=== PATIENT | female | born 1965 | race Caucasian/White ===

== ENCOUNTER 2018-01-19 19:05 | Observation (INO) | payer MEDICARE ==
[~2018-01-19] VITALS: Ht 157.5 cm; Wt 73.5 kg
[2018-01-19 19:18] VITALS: BP 133/67; PULSE 112; RESP 21; TEMP 98.6; O2SAT 99
[2018-01-19 20:39] LABS: TROPONIN I LESS THAN 0.02 NG/ML (0.02-0.05)
[2018-01-19] MEDS ORDERED: ACETAMINOPHEN/HYDROcodone 325 MG/5 MG TAB PO ONE (21:00)
--- NOTE | 2018-01-19 21:00 | PD ---
HPI Chief Complaint: Chest Pain Time Seen by Provider: 20:47 Travel History International Travel<30 days: No Contact w/Intl Traveler<30days: No Traveled to known affect area: No History of Present Illness HPI 52-year-old female presents to the emergency department for evaluation of right forearm pain. Patient states that she crushed her right arm in June of last year. She states she has had pain since, but the pain worsened today. She denies any injury. Patient states the pain is worse with movement. Current pain is 10/10, aching, throbbing, sharp. Alleviating factors keeping the arm still. Moderate severity. Patient also states that she had an episode of chest tightness that was in the midsternal chest and lasted approximately an hour. She believes it was from anxiety due to the pain in her arm. She does report history of SD, CHF, she states her ejection fraction is 23%. She states she had a recent stress test in [place], but does not know the results of it. Patient denies any chest pain at this time. She had no radiation of the pain when she had it. She states it felt tight. PFSH Past Medical History Cardiovascular Problems: Yes Chest Pain: Yes Congestive Heart Failure: Yes COPD: Yes Cerebrovascular Accident: Yes Hypertension: Yes Myocardial Infarction: Yes Triglycerides - High: Yes ?: Not Past Surgical History Gynecologic Surgery: Yes (HYSTERECTOMY) Hysterectomy: Yes Social History Alcohol Use: No Tobacco Use: Yes Substance Use: No Allergies-Medications (Allergen,Severity, Reaction): Coded Allergies: latex (Verified Allergy, Severe, 01/19/18) varenicline (Verified Allergy, Severe, 01/19/18) Review of Systems Except as stated in HPI: all other systems reviewed are Neg Physical Exam Narrative GENERAL: Well-nourished, well-developed female patient, ambulatory. Afebrile. SKIN: Focused skin assessment warm/dry. Patient has chronic scars noted of the right forearm. HEAD: Normocephalic. Atraumatic. EYES: No scleral icterus. No injection or drainage. NECK: Supple, trachea midline. No JVD or lymphadenopathy. CARDIOVASCULAR: Regular rate and rhythm without murmurs, gallops, or rubs. Right radial pulse is 2+. RESPIRATORY: Breath sounds equal bilaterally. No accessory muscle use. Lung sounds are clear to auscultation. GASTROINTESTINAL: Abdomen soft, non-tender, nondistended. MUSCULOSKELETAL: No cyanosis, or edema. BACK: Nontender without obvious deformity. No CVA tenderness. Data Data Last Documented VS Vital Signs Date Time Temp Pulse Resp B/P (MAP) Pulse Ox O2 Delivery O2 Flow Rate FiO2 01/19/18 21:30 97 Room Air 01/19/18 20:06 100 16 01/19/18 19:18 98.6 133/67 (89) Orders Orders Electrocardiogram (01/19/18 ) Troponin I (01/19/18 19:38) Creatine Kinase (Cpk) (01/19/18 19:38) Forearm (2vws) (01/19/18 ) Acetamin-Hydrocod 325-5 Mg ([place] 5-325 (01/19/18 21:00) Basic Metabolic Panel (Bmp) (01/19/18 21:10) B-Type Natriuretic Peptide (01/19/18 21:10) Complete Blood Count With Diff (01/19/18 21:10) Magnesium (Mg) (01/19/18 21:10) Prothrombin Time / Inr (Pt) (01/19/18 21:10) Act Partial Throm Time (Ptt) (01/19/18 21:10) Chest, Single Ap (01/19/18 21:10) Ecg Monitoring (01/19/18 21:10) Bilateral Bp Monitoring (01/19/18 21:10) Iv Access Insert/Monitor (01/19/18 21:10) Oximetry (01/19/18 21:10) Oxygen Administration (01/19/18 21:10) Sodium Chloride 0.9% Flush (Ns Flush) (01/19/18 21:15) Chest, Pa & Lat (01/19/18 ) Labs Laboratory Tests Test 01/19/18 19:45 01/19/18 21:28 Total Creatine Kinase 60 U/L Troponin I LESS THAN 0.02 NG/ML Prothrombin Time 10.5 SEC Prothromb Time International Ratio 1.0 RATIO Activated Partial Thromboplast Time 31.9 SEC Blood Urea Nitrogen 12 MG/DL Creatinine 0.88 MG/DL Random Glucose 107 MG/DL Calcium Level 8.7 MG/DL Magnesium Level 2.1 MG/DL Sodium Level 140 MEQ/L Potassium Level 4.2 MEQ/L Chloride Level 105 MEQ/L Carbon Dioxide Level 27.4 MEQ/L Anion Gap 8 MEQ/L Estimat Glomerular Filtration Rate 67 ML/MIN MDM Medical Decision Making Medical Screen Exam Complete: Yes Emergency Medical Condition: Yes Medical Record Reviewed: Yes Interpretation(s) x-ray right forearm - CONCLUSION: 1. Lack of union of the radial fracture with intramedullary jennie. 2. No acute abnormality. chest x-ray - CONCLUSION: Lingular opacity. Differential diagnostic considerations include prominent epicardial fat pad, mass, rounded atelectasis, and infiltrate. PA and lateral views of the chest may be beneficial to further evaluate. Differential Diagnosis Chronic arm pain versus neuropathy versus fracture versus ACS versus anxiety versus chest wall pain versus pneumonia Narrative Course 52-year-old female presents to the emergency department for evaluation of arm pain. She also states she had an episode of midsternal chest pain that lasted approximately an hour earlier today. EKG done in triage shows sinus rhythm, heart rate 97, ST depression in lead II, III, V4, V5, V6. I do not have a previous to compare to. The patient is from [place]. CBC, BMP, BNP, CK, troponin, magnesium, PTT, PT/INR, chest x-ray, x-ray of the right forearm are ordered and pending. Patient states she took aspirin earlier today. CBC is pending. BMP shows no acute abnormality. BNP is pending. CK is 60. Magnesium is 2.1. Troponin is less than 0.02. Coags show no acute abnormality. Chest x-ray shows lingular opacity. Differential diagnostic considerations include prominent epicardial fat pad, mass, rounded atelectasis, and infiltrate. PA and lateral views of the chest may be beneficial to further evaluate. X-ray of the right forearm shows lack of union of the distal radial fracture with intramedullary jennie, no acute abnormality. Chest x-ray PA and lateral is ordered and pending due to radiologist's recommendation. CBC, BNP, CXR are pending. Dr. Mcdonnell will resume care and disposition of patient. Henna Medrano January 19, 2018 21:00
[2018-01-19] MEDS ORDERED: SODIUM CHLORIDE 0.9% FLUSH 10 ML FLUSH IVF PRN (21:15)
--- NOTE | 2018-01-19 21:15 | RADRPT ---
EXAM DATE/TIME: 01/19/2018 21:01 [facility] COMPARISON: No previous studies available for comparison. INDICATIONS : Right arm pain from elbow to wrist. MEDICAL HISTORY : None. SURGICAL HISTORY : ORIF right forearm. ENCOUNTER: Initial ACUITY: 3 days PAIN SCORE: 10/10 LOCATION: Right forearm. FINDINGS: 2 views of the right forearm show an intramedullary jennie through the radius. There is an old fracture involving the distal radial diaphysis with lack of union. The ulna is intact. No acute fracture obser estela. No soft tissue swelling. CONCLUSION: 1. Lack of union of the radial fracture with intramedullary jennie. 2. No acute abnormality. Quentin Gordon Jr., MD on January 19, 2018 at 21:12 Board Certified Radiologist. This report was verified electronically.
[2018-01-19 21:30] VITALS: O2SAT 97
[2018-01-19 22:09] LABS: PROTHROMBIN TIME - PATIENT 10.5 SEC (9.8-11.6)
--- NOTE | 2018-01-19 22:17 | RADRPT ---
EXAM DATE/TIME: 01/19/2018 21:35 [facility] COMPARISON: No previous studies available for comparison. INDICATIONS : Shortness of breath. MEDICAL HISTORY : SURGICAL HISTORY : ORIF right forearm. ENCOUNTER: Initial ACUITY: 1 day PAIN SCORE: 0/10 LOCATION: Bilateral chest FINDINGS: A focal opacity obscures the cardiac apex. Remaining lungs are clear. No effusions. Heart is normal i n size. Bony structures are unremarkable. CONCLUSION: Lingular opacity. Differential diagnostic considerations include prominent epicardial fat pad, mass, rounded atelectasis, and infiltrate. PA and lateral views of the chest may be beneficial to further e valuate. Quentin Gordon Jr., MD on January 19, 2018 at 22:14 Board Certified Radiologist. This report was verified electronically.
[2018-01-19 22:37] LABS: BICARBONATE 27.4 MEQ/L (21.0-32.0); CALCIUM 8.7 MG/DL (8.5-10.1); CREATININE 0.88 MG/DL (0.50-1.00); MAGNESIUM 2.1 MG/DL (1.5-2.5)
[2018-01-19 22:59] LABS: AUTOMATED NEUTROPHIL # 5.3 TH/MM3 (1.8-7.7); BASOPHIL # 0.1 TH/MM3 (0-0.2); BASOPHIL % 1.4 % (0.0-2.0); EOSINOPHIL # 0.2 TH/MM3 (0-0.4); EOSINOPHIL % 2.4 % (0.0-4.0); HEMATOCRIT 37.2 % (35.0-46.0); HEMOGLOBIN 12.6 GM/DL (11.6-15.3); LYMPH % 28.2 % (9.0-44.0); LYMPHOCYTE # 2.5 TH/MM3 (1.0-4.8); MEAN CELL VOLUME 85.2 FL (80.0-100.0); MEAN CORPUSCULAR HEMOGLOBIN 28.9 PG (27.0-34.0); MEAN CORPUSCULAR HGB CONC 33.9 % (32.0-36.0); MEAN PLATELET VOLUME 8.1 FL (7.0-11.0); MONO % 7.3 % (0.0-8.0); MONOCYTE # 0.6 TH/MM3 (0-0.9); NEUT % 60.7 % (16.0-70.0); PLATELET COUNT 405 TH/MM3 (150-450); RED BLOOD COUNT 4.37 MIL/MM3 (4.00-5.30); WHITE BLOOD COUNT 8.7 TH/MM3 (4.0-11.0)
--- NOTE | 2018-01-19 23:11 | RADRPT ---
EXAM DATE/TIME: 01/19/2018 23:01 [facility] COMPARISON: CHEST SINGLE AP, January 19, 2018, 21:35. INDICATIONS : Chest pain. Abnormal priors single view chest exam. MEDICAL HISTORY : None. SURGICAL HISTORY : ORIF right forearm. ENCOUNTER: Subsequent ACUITY: 1 day PAIN SCORE: 2/10 LOCATION: Bilateral chest FINDINGS: PA and lateral views of the chest demonstrate the lungs to be symmetrically aerated without evidence of mass, infiltrate or effusion. The cardiomediastinal contours are unremarkable. Osseous structure s are intact. CONCLUSION: No acute disease. Jack Thorpe MD on January 19, 2018 at 23:05 Board Certified Radiologist. This report was verified electronically.
[2018-01-20 00:13] VITALS: BP 94/50; PULSE 75; RESP 12; O2SAT 94
[2018-01-20] MEDS ORDERED: SODIUM CHLORIDE 0.9% FLUSH 10 ML FLUSH IV FLUSH PRN (01:15)
[2018-01-20] MEDS ORDERED: MAGNESIUM HYDROXIDE SUSP 30 ML CUP PO PRN (01:15)
[2018-01-20] MEDS ORDERED: ONDANSETRON HCL 4 MG/2 ML VIAL IVP PRN (01:15)
[2018-01-20] MEDS ORDERED: SENNOSIDES 8.6 MG TAB PO PRN (01:15)
[2018-01-20] MEDS ORDERED: NALOXONE HCL 0.4 MG/ML AMP IV PUSH PRN (01:15)
[2018-01-20] MEDS ORDERED: LACTULOSE SYRUP 20 GM/30 ML CUP PO PRN (01:15)
[2018-01-20] MEDS ORDERED: ACETAMINOPHEN 325 MG TAB PO PRN (01:15)
[2018-01-20] MEDS ORDERED: BISACODYL 10 MG SUPP RECTAL PRN (01:15)
[2018-01-20] MEDS ORDERED: SODIUM CHLORID 0.9% 500 ML INJ 500 ML IV ONE (01:15)
[2018-01-20 01:26] VITALS: O2SAT 94
[2018-01-20 01:29] VITALS: BP 96/55; PULSE 72; RESP 12; O2SAT 95
[2018-01-20] MEDS ORDERED: ONDANSETRON ODT 4 MG TAB PO PRN (01:30)
--- NOTE | 2018-01-20 01:52 | PD ---
Physical Exam Date Seen by Provider: January 20, 2018 Time Seen by Provider: 01:51 Narrative accepted in transfer of care GENERAL: Well-developed well-nourished female no acute distress no respiratory distress SKIN: Warm and dry. HEAD: Normocephalic. EYES: No scleral icterus. No injection or drainage. NECK: Supple, trachea midline. No JVD or lymphadenopathy. CARDIOVASCULAR: Regular rate and rhythm without murmurs, gallops, or rubs. RESPIRATORY: Breath sounds equal bilaterally. No accessory muscle use. GASTROINTESTINAL: Abdomen soft, non-tender, nondistended. MUSCULOSKELETAL: No cyanosis, or edema. Attention right upper extremity distally neurovascular tendon involved marked scarring to the forearm secondary to multiple surgeries of the extremity. Neurovascular and tendon intact. BACK: Nontender without obvious deformity. No CVA tenderness. Data Data Last Documented VS Vital Signs Date Time Temp Pulse Resp B/P (MAP) Pulse Ox O2 Delivery O2 Flow Rate FiO2 01/20/18 00:13 75 12 94/50 (65) 94 Room Air 01/19/18 19:18 98.6 Orders Orders Electrocardiogram (01/19/18 ) Troponin I (01/19/18 19:38) Creatine Kinase (Cpk) (01/19/18 19:38) Forearm (2vws) (01/19/18 ) Acetamin-Hydrocod 325-5 Mg ([place] 5-325 (01/19/18 21:00) Basic Metabolic Panel (Bmp) (01/19/18 21:10) B-Type Natriuretic Peptide (01/19/18 21:10) Complete Blood Count With Diff (01/19/18 21:10) Magnesium (Mg) (01/19/18 21:10) Prothrombin Time / Inr (Pt) (01/19/18 21:10) Act Partial Throm Time (Ptt) (01/19/18 21:10) Chest, Single Ap (01/19/18 21:10) Ecg Monitoring (01/19/18 21:10) Bilateral Bp Monitoring (01/19/18 21:10) Iv Access Insert/Monitor (01/19/18 21:10) Oximetry (01/19/18 21:10) Oxygen Administration (01/19/18 21:10) Sodium Chloride 0.9% Flush (Ns Flush) (01/19/18 21:15) Chest, Pa & Lat (01/19/18 ) Sodium Chlorid 0.9% 500 Ml Inj (Ns 500 M (01/20/18 01:15) Admit Order (Ed Use Only) (01/20/18 ) Accounts Payable Supervisor / Telemetry OC.Q8H (01/20/18 01:11) Diet Heart Healthy (01/20/18 Breakfast) Activity Oob With Assistance (01/20/18 01:11) Notify Dr: Other (01/20/18 01:11) Place In Observation (01/20/18 ) Vital Signs (Adult) Q4H (01/20/18 01:13) Activity Oob With Assistance (01/20/18 01:13) Accounts Payable Supervisor / Telemetry .CONTINUOUS (01/20/18 01:13) Sodium Chloride 0.9% Flush (Ns Flush) (01/20/18 01:15) Sodium Chloride 0.9% Flush (Ns Flush) (01/20/18 09:00) Acetaminophen (Tylenol) (01/20/18 01:15) Ondansetron Inj (Zofran Inj) (01/20/18 01:15) Troponin I (01/20/18 01:13) Troponin I (01/20/18 07:13) Electrocardiogram (01/20/18 01:13) Electrocardiogram (01/20/18 07:13) Resp Oxygen Kyle C Titrat 1-4 L (01/20/18 ) Enoxaparin Inj (Lovenox Inj) (01/20/18 09:00) Naloxone Inj (Narcan Inj) (01/20/18 01:15) Magnesium Hydroxide Liq (Milk Of Magnesi (01/20/18 01:15) Sennosides (Senokot) (01/20/18 01:15) Bisacodyl Supp (Dulcolax Supp) (01/20/18 01:15) Lactulose Liq (Lactulose Liq) (01/20/18 01:15) Labs Laboratory Tests Test 01/19/18 19:45 01/19/18 21:28 01/19/18 22:52 Total Creatine Kinase 60 U/L Troponin I LESS THAN 0.02 NG/ML Prothrombin Time 10.5 SEC Prothromb Time International Ratio 1.0 RATIO Activated Partial Thromboplast Time 31.9 SEC Blood Urea Nitrogen 12 MG/DL Creatinine 0.88 MG/DL Random Glucose 107 MG/DL Calcium Level 8.7 MG/DL Magnesium Level 2.1 MG/DL Sodium Level 140 MEQ/L Potassium Level 4.2 MEQ/L Chloride Level 105 MEQ/L Carbon Dioxide Level 27.4 MEQ/L Anion Gap 8 MEQ/L Estimat Glomerular Filtration Rate 67 ML/MIN White Blood Count 8.7 TH/MM3 Red Blood Count 4.37 MIL/MM3 Hemoglobin 12.6 GM/DL Hematocrit 37.2 % Mean Corpuscular Volume 85.2 FL Mean Corpuscular Hemoglobin 28.9 PG Mean Corpuscular Hemoglobin Concent 33.9 % Red Cell Distribution Width 13.0 % Platelet Count 405 TH/MM3 Mean Platelet Volume 8.1 FL Neutrophils (%) (Auto) 60.7 % Lymphocytes (%) (Auto) 28.2 % Monocytes (%) (Auto) 7.3 % Eosinophils (%) (Auto) 2.4 % Basophils (%) (Auto) 1.4 % Neutrophils # (Auto) 5.3 TH/MM3 Lymphocytes # (Auto) 2.5 TH/MM3 Monocytes # (Auto) 0.6 TH/MM3 Eosinophils # (Auto) 0.2 TH/MM3 Basophils # (Auto) 0.1 TH/MM3 CBC Comment DIFF FINAL Differential Comment B-Type Natriuretic Peptide 31 PG/ML [facility] Medical Record Reviewed: Yes Supervised Visit with YOUNG: Yes Interpretation(s) EKG: Sinus rhythm without acute ST elevation however mild ST segment depression noted inferiorly and anteriorly; no comparison study Troponin I: Less than 0.02, not elevated Last Impressions Chest X-Ray 01/19/182109 Signed Impressions: Service Date/Time: Friday, January 19, 2018 21:35 - CONCLUSION: Lingular opacity. Differential diagnostic considerations include prominent epicardial fat pad, mass, rounded atelectasis, and infiltrate. PA and lateral views of the chest may be beneficial to further evaluate. Quentin Gordon Jr., MD Radius/Ulna X-Ray 01/19/18 0000 Signed Impressions: Service Date/Time: Friday, January 19, 2018 21:01 - CONCLUSION: 1. Lack of union of the radial fracture with intramedullary jennie. 2. No acute abnormality. Quentin Gordon Jr., MD Chest X-Ray 01/19/18 0000 Signed Impressions: Service Date/Time: Friday, January 19, 2018 23:01 - CONCLUSION: No acute disease. Jack Thorpe MD CBC & BMP Diagram 01/19/18 21:28 Calcium Level 8.7, Magnesium Level 2.1 01/19/18 22:52 Vital Signs Date Time Temp Pulse Resp B/P (MAP) Pulse Ox O2 Delivery O2 Flow Rate FiO2 01/20/18 00:13 75 12 94/50 (65) 94 Room Air 01/19/18 21:30 97 Room Air 01/19/18 21:30 97 Room Air 01/19/18 20:06 100 16 Room Air 01/19/18 19:18 98.6 112 21 133/67 (89) 99 Differential Diagnosis Chest pain atypical chest pain ACS AL CHF dissection electrolyte disturbance post medullary jennie complication osteomyelitis Narrative Course I, Dr. Mcdonnell, have reviewed the advance practice practitioner's documentation and am in agreement, met with the patient face to face, made the diagnosis, and the medical decision making was done by me. *My assessment and Findings: Chest pain history of CAD with abnormal EKG will admit for serial enzymes; patient also with forearm pain status post fracture repair without acute abnormality by imaging study and no findings for redness induration increased warmth or infection. 52-year-old female recently moved to the area from [place] was no coronary vessel disease MUGA scan confirmed decreased ejection fraction of 20-25% with recommendation for pacemaker defibrillator placement presents to the emergency department for chest pain and right arm pain. Currently patient is asymptomatic except for complaint of right forearm pain. Serial cardiac enzymes should be measured first set of cardiac enzymes found to be in normal range and EKG shows nonspecific ST segment mild depression without evidence of acute ST segment elevation. Recommend serial cardiac enzymes and ongoing evaluation and establishment with molder machine in view of history. Patient is otherwise stable for outpatient management. Physician Communication Physician Communication discussed with Dr Escalante for OBS Diagnosis Primary Impression: Chest pain Additional Impression: Right arm pain Admitting Information Admitting Physician Requests: Observation Scripts Tramadol (Tramadol) 50 Mg Tab 50 MG PO Q8H Y for PAIN, #12 TAB 0 Refills Prov: Giovanny Escalante DO 01/20/18 Johana Mcdonnell MD January 20, 2018 01:52
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
[2018-01-20] MEDS ORDERED: traMADol HCL 50 MG TAB PO PRN (02:45)
[2018-01-20 04:03] VITALS: BP 105/55; PULSE 75; RESP 21; TEMP 97.3; O2SAT 98
[2018-01-20] MEDS ORDERED: TRAM50TA PO (05:38)
[2018-01-20 07:29] VITALS: BP 110/58; PULSE 74; RESP 20; TEMP 98.3; O2SAT 95
[2018-01-20] MEDS ORDERED: ENOXAPARIN SODIUM 40 MG/0.4 ML SYRINGE SQ SCH (09:00)
[2018-01-20] MEDS ORDERED: SODIUM CHLORIDE 0.9% FLUSH 10 ML FLUSH IV FLUSH SCH (09:00)
--- NOTE | 2018-01-20 11:54 | HHI.PR ---
Addendum To [facility] Progress Not Reason for addendum: Additonal documentation (Not seen by me already dc) Jd Green MD January 20, 2018 11:54
--- NOTE | 2018-01-20 16:55 | EKG ---
Date Performed: 01/20/2018 Time Performed: 02:04:42 PTAGE: 52 years EKG: Sinus rhythm MODERATE VOLTAGE CRITERIA FOR LVH, CONSIDER NORMAL VARIANT MODERATE ST DEPRESSION ABNORMAL ECG PREVIOUS TRACING : 01/19/2018 19.29 Since the previous tracing, no significant change noted DOCTOR: Jt Brown Interpretating Date/Time 01/20/2018 16:54:45
--- NOTE | 2018-01-20 16:55 | EKG ---
Date Performed: 01/19/2018 Time Performed: 19:29:26 PTAGE: 52 years EKG: Sinus rhythm NONSPECIFIC ST & T-WAVE ABNORMALITY BORDERLINE ECG NO PREVIOUS TRACING DOCTOR: Jt Brown Interpretating Date/Time 01/20/2018 16:54:21
== END 2018-01-20 08:31 | disposition home or self-care (01) ==
LOC: NEPC 19:05 → NEDA 01-20 01:15 → NEPHCDU 01-20 02:48
PROVIDERS: ADMIT Internal Medicine; ATTEND Internal Medicine
DX: R07.89 Other chest pain (principal); M79.601 Pain in right arm; R06.02 Shortness of breath; R11.0 Nausea; R42 Dizziness and giddiness; I25.10 Atherosclerotic heart disease of native coronary artery without angina pectoris; I25.5 Ischemic cardiomyopathy; I25.2 Old myocardial infarction; R94.31 Abnormal electrocardiogram [ECG] [EKG]; I11.0 Hypertensive heart disease with heart failure; I50.9 Heart failure, unspecified; J44.9 Chronic obstructive pulmonary disease, unspecified; S52.501K Unspecified fracture of the lower end of right radius, subsequent encounter for closed fracture with nonunion; Z86.73 Personal history of transient ischemic attack (TIA), and cerebral infarction without residual deficits; X58.XXXS Exposure to other specified factors, sequela
CPT/HCPCS: 71045; 71046; 73090; 80048; 82550; 83735; 83880; 84484; 85025; 85610; 85730; 93005; 96360; 99285; G0378; J7040

== ENCOUNTER 2018-02-18 11:55 | Day surgery (SDC) | payer OTHER ==
[2018-02-18] VITALS (7 sets, daily range): BP systolic 116–119; BP diastolic 66–89; PULSE 72–78; RESP 18; TEMP 97.8–98; O2SAT 96–98
[~2018-02-18] VITALS: Ht 160 cm; Wt 65.8 kg
[~2018-02-18 11:55] MED LIST: TRAM50TA PO
[2018-02-18] MEDS ORDERED: IOHEXOL 350 MG/ML 50 ML BTL (for EPS) OTHER ONE (11:56)
[2018-02-18] MEDS ORDERED: PROPOFOL 200 MG/20 ML AMP IV ONE (12:00)
[2018-02-18] MEDS ORDERED: LIDOCAINE HCL 1% PF 5 ML SYRINGE OTHER ONE (12:00)
[2018-02-18] MEDS ORDERED: PHENYLEPH/NS 1000 MCG/10 ML SYR IV ONE (12:00)
[2018-02-18] MEDS ORDERED: SODIUM CHLORID 0.9% 500 ML IV PRN (12:30)
[2018-02-18] MEDS ORDERED: LACTATED RINGER'S 1000 ML IV PRN (12:30)
[2018-02-18] MEDS ORDERED: CHLORHEXIDINE GLUCONATE 2 % 1 PACK (2 CLOTHS) TOPICAL SCH (12:30)
[2018-02-18] MEDS ORDERED: MUPIROCIN 2% OINT 1 APPLIC/GM SYR NASAL SCH (12:30)
[2018-02-18] MEDS ORDERED: NS 1000 ML IV SCH (12:30)
[2018-02-18] MEDS ORDERED: POVIDONE IODINE 5% (ANTISEPSIS KIT) 4 APPLICATIONS EACH NARE PRN (12:30)
[2018-02-18] MEDS ORDERED: ceFAZolin 2 GM PREMIX 50 ML IV SCH (12:30)
[2018-02-18] MEDS ORDERED: CHLORHEXIDINE GLUCONATE 2 % 1 PACK (2 CLOTHS) TOPICAL PRN (12:30)
[2018-02-18] MEDS ORDERED: VANCOMYCIN 1000 MG/NS 200 ML IV SCH (12:30)
[2018-02-18] MEDS ORDERED: METOPROLOL TARTRATE 25 MG TAB PO PRN (12:30)
[2018-02-18] MEDS ORDERED: POVIDONE IODINE 5% (ANTISEPSIS KIT) 4 APPLICATIONS EACH NARE SCH (12:30)
[2018-02-18 12:49] LABS: AUTOMATED NEUTROPHIL # 3.2 TH/MM3 (1.8-7.7); BASOPHIL % 0.7 % (0.0-2.0); EOSINOPHIL # 0.2 TH/MM3 (0-0.4); EOSINOPHIL % 3.3 % (0.0-4.0); HEMATOCRIT 40.9 % (35.0-46.0); HEMOGLOBIN 13.5 GM/DL (11.6-15.3); LYMPH % 41.1 % (9.0-44.0); LYMPHOCYTE # 2.8 TH/MM3 (1.0-4.8); MEAN CELL VOLUME 86.1 FL (80.0-100.0); MEAN CORPUSCULAR HEMOGLOBIN 28.3 PG (27.0-34.0); MEAN CORPUSCULAR HGB CONC 32.9 % (32.0-36.0); MEAN PLATELET VOLUME 8.6 FL (7.0-11.0); MONO % 8.4 % (0.0-8.0); MONOCYTE # 0.6 TH/MM3 (0-0.9); NEUT % 46.5 % (16.0-70.0); PLATELET COUNT 333 TH/MM3 (150-450); RED BLOOD COUNT 4.76 MIL/MM3 (4.00-5.30); RED CELL DISTRIBUTION WIDTH 13.8 % (11.6-17.2); WHITE BLOOD COUNT 6.9 TH/MM3 (4.0-11.0)
[2018-02-18 12:59] LABS: INTERNATIONAL NORMALIZED RATIO 1.1 RATIO; PROTHROMBIN TIME - PATIENT 10.8 SEC (9.8-11.6)
[2018-02-18 13:03] LABS: BICARBONATE 25.2 MEQ/L (21.0-32.0); CALCIUM 9.1 MG/DL (8.5-10.1); CREATININE 0.85 MG/DL (0.50-1.00)
[2018-02-18] MEDS ORDERED: VITA2000 PO (13:04)
[2018-02-18] MEDS ORDERED: OMEP20TA93 PO (13:04)
[2018-02-18] MEDS ORDERED: FURO20TA PO (13:04)
[2018-02-18] MEDS ORDERED: CALC1TAB87 PO (13:04)
[2018-02-18] MEDS ORDERED: CARV6.252 PO (13:04)
[2018-02-18] MEDS ORDERED: PARO20TA2 PO (13:04)
[2018-02-18] MEDS ORDERED: SACU1TAB PO (13:04)
[2018-02-18] MEDS ORDERED: GABA100C4 PO (13:04)
[2018-02-18] MEDS ORDERED: ASPI1TAB57 PO (13:04)
[2018-02-18] MEDS ORDERED: POTA10TA2 PO (13:04)
[2018-02-18] MEDS ORDERED: ceFAZolin INJ 1,000 MG VIAL ONE (13:54)
[2018-02-18] MEDS ORDERED: LIDOCAINE HCL 2% 20 ML VIAL ONE (13:54)
[2018-02-18] MEDS ORDERED: VANCOMYCIN HCL 1000 MG VIAL ONE (13:54)
[2018-02-18] MEDS ORDERED: MIDAZOLAM HCL 2 MG/2 ML VIAL ONE (15:14)
--- NOTE | 2018-02-18 15:35 | CATHPROC ---
InterValve HIS Report Study Information Study Number Admission Scheduled Start Study Start [id number] Feb 18 2018 11:55AM 02/18/2018 Feb 18 2018 1:36PM [facility] Service Cardiac Pacer/ICD Admit Source Facility Department Other [facility] - [facility] Physician and Clinical Staff Initial Toño Regan Neuroscience Specialist Cha Storey,GENNY Other Anesthesia, MINE PATROL Recorder Dalia Rodríguez,RT(R) TECH2 Scrub Clinton OrtizRT(R) Procedures Performed Procedure Location (Site) Vessel Name Lead Insertion Venogram Subclav. Vein (Rt) Subclavian Vein Equipment Time Salesperson Jewelry Description Size Mfg Part Number Used/Scraped DEFIBRILLATOR, INTICA 7 VR-T 14:56 BIOTRONIK VVE-VDDR [id number] Used DX 14:30 BIOTRONIK LEAD, PLEXA PRO-MRI DF 65/15 [id number] Used [id number] 13:37 [employer] BLANKET,WARM AIR CCL * Used *[id number] TP-1103 13:37 [employer] SUTURE, STRIP PLUS 1/2" * Used *[id number] 13:37 MEDLINE PACER ADHESIVE, MASTISOL 2/3CC 2/3CC 0523-48 Used 13:37 MEDLINE PACER MURDOCK, LIMB * 2530 *[id number] Used [id number] 13:37 MEDLINE PACER PACK, PACER CUSTOM * Used *[id number] 13:37 MEDLINE PACER PEN, SKIN DUAL W/ RULER * Used *[id number] 13:38 [employer] PACER SAFE SHEATH, FR8, 13CM FR 8 [id number] Used 14:07 Needle Sponge Count 2 22 Used 14:07 Needle Sponge Count 25 1 Used 14:06 Needle Sponge Count 3 3 Used 14:26 NYCOMED OMNIPAQUE, 300 MG, 50ML 50ML [id number] Used [id number] *[id number] SUTURE, 3-0 VICRYL [SH] ([id number]) SUTURE, 3-0 VICRYL [SH] ([id number]) SUTURE, 4-0 MONOCRYL [PS2] ([id number]) [facility] PAD, ELECTROSURGICAL 13:37 * [id number] *[id number] Used SURGICAL GROUNDING ORANGE 9460-1891 13:37 [employer] ESTEFANI. / * Used *07422 Equipment Model, Serial, Lot Number and Expiration Data Description Model Number Serial Number Lot Number Expiration Date DEFIBRILLATOR, INTICA 7 VR-T DX [id number] 05-31-2019 LEAD, MELODYA PRO-MRI DF 65/15 [id number] 10-31-2019 Medication Medication Total Dose (Bolus/Oral) Medication Total Dosage/Unit 2% XYLOCAINE 50 mL Medications (Bolus/Oral) Medication Time Given Dosage/Unit Administered By Reason 2% XYLOCAINE 02/18/2018 2:26:08 PM 50 mL Toño Gauthier For pain 50 mL 2% XYLOCAINE given in lab by Toño Gauthier via Subcutaneous. Ordered by Toño Gauthier. Reason: Fo r pain. applied to right upper chest. Medication (Drip) Medication Time Given Dosage/Unit Concentration/Unit Diluent (ml) Solution ANCEF 02/18/2018 2:01:51 PM 1 g 1 g ANCEF given in lab by Anesthesia, MINE PATROL in Right Antecubital via Peripheral IV. Ordered by Toño Gauthier. IV Solutions 02/18/2018 1:39:05 PM 0 mL (IV) 500 NaCl .9 IV Solutions given in lab by Cha Storey RN in Right Antecubital via Peripheral IV. Pump/Drip Clint w = 20 ml/hr using NaCl .9. Ordered by Toño Gauthier. IV Solutions 02/18/2018 1:39:27 PM 0 mL (IV) 500 NaCl .9 IV Solutions given in lab by Cha Storey RN in Left Antecubital via Peripheral IV. Pump/Drip Flow = 20 ml/hr using NaCl .9. Ordered by Toño Gauthier. VANCOMYCIN DRIP 02/18/2018 2:10:54 PM 1 g 1 g VANCOMYCIN DRIP given in lab by Anesthesia, MINE PATROL in Right Antecubital via Peripheral IV. Ordered by Toño Gauthier. Initial Case Assessment Cardiovascular HR Rhythm NIBP Chest Pain 54 sb 88/50 0 Edema Present Skin color Skin None Normal Warm Dry Neurological State Oriented to time-place- Alert Moves all extremities person Respiration - General Respiration Rate SpO2 (%) (B/min) 18 100 Final Case Assessment Cardiovascular HR Rhythm NIBP Chest Pain 62 sr 101/55 0 Edema Present Skin color Skin None Normal Warm Dry Neurological State Oriented to time-place- Alert Moves all extremities person Respiration - General Respiration Rate SpO2 (%) (B/min) 18 100 Chronological Log Time Study Chronological Log 13:36:28 Patient arrived via Bed. 13:36:28 Patient Name, D.O.B, / Armband Verified By R.N. 13:36:29 Consent signed by the physician and the patient and verified by the [facility] staff. 13:36:30 Pre-op and post- op instructions given; patient acknowledges understanding of instructions. 13:36:32 Anesthesia at bedside. Assumes care of patient. 13:37:39 Verbal Stimulation=2 Physical Stimulation=2 Airway=2 Respiration=2 TOTAL=8. (0=absent, 1=li mited, 2=present) 13:37:50 Presedation assessment performed by [facility] RN. 13:37:52 Patient has been NPO for More than 6Hrs. 13:37:54 Skin Breakdown/none per patient 13:38:43 Patient Warmer Placed on the Table. 13:38:44 Disposable Defibrillator Pads Placed On Patient. 13:38:45 Rufina Prominences Protected 13:38:48 A # 20 IV was noted in the Antecubital (left). Grade = 0 13:38:57 A # 20 IV was noted in the Antecubital (right). Grade = 0 IV Solutions given in lab by Cha Storey RN in Right Antecubital via Peripheral IV. Pump/Dr ip Flow = 20 ml/hr using 13:39:05 NaCl .9. Ordered by Toño Gauthier. IV Solutions given in lab by Cha Storey, GENNY in Left Antecubital via Peripheral IV. Pump/Dri p Flow = 20 ml/hr using 13:39:27 NaCl .9. Ordered by Toño Gauthier. 13:39:49 History and physical on the chart or being dictated. 14:01:51 1 g ANCEF given in lab by Alex, MINE PATROL in Right Antecubital via Peripheral IV. Ordered by Toño Gauthier. 14:05:15 Left Upper Chest Prepped Times Two. 14:05:22 Right Upper Chest Prepped Times Two. 14:05:42 Bovie ground pad applied to: left thigh 14:06:04 2% CHLORHEXIDINE GLUCONATE WASH AND NASAL SWIPE DONE PRIOR TO PROCEDURE. First Sponge And Instrument Count Done by Dalia Rodríguez, RT(R) TECH2. 14:06:08 Hypo's: 3, Sponges: 25, Bovie/scratch: 2 Sutures: 6, Blades: 2, Instruments: 26, Syveck Patches: 0 14:07:12 Pt intubated with the help of Anesthesiologist. 1 g VANCOMYCIN DRIP given in lab by Anesthesia, MINE PATROL in Right Antecubital via Peripheral IV. Or dered by Disha 14:10:54 Toño. 14:13:10 MD texted we are ready. 14:15:55 MD arrived. 14:16:50 MD responded. Assessment: Initial Case, HR=54 BPM, Rhythm=sb, NIBP=88/50 mmhg, Chest Pain=0, Edema=None, [place] r=Normal, Skin = Warm, Dry 14:17:02 Neurological: State=Alert, Ox3, ALVARES Respiration: Resp=18 B/min, SqK3=689 % Time Out. Correct patient, procedure, procedure equipment, site and side verified with physicia n present. Time 14:24:13 concurred by MD, individual staff and MINE PATROL. Time Out #2 - Consents verified, patient in correct position, all results are labled and displa yed, safety precautions 14:24:13 taken, antibiotics administered. Time out concurred by MD, individual staff and MINE PATROL in procedu re 14:24:15 Case Start 14:25:47 The Subclav. Vein (Rt) was manually injected with 15 cc's of contrast. OMNIPAQUE, 300 MG, 5 0ML 50ML used. 50 mL 2% XYLOCAINE given in lab by Toño Gauthier via Subcutaneous. Ordered by Toño Gauthier. Reas on: For pain. 14:26:08 applied to right upper chest. 14:26:46 Surgical Incision Made. 14:28:44 One antibiotic sponge put into the surgical pocket. 14:29:05 A pocket was created at the R Upper Chest. 14:29:12 Vascular access was obtained in the Subclav. Vein (Rt). 14:29:19 Wire inserted 14:29:57 A SAFE SHEATH, FR8, 13CM FR 8 was advanced into the Subclav. Vein (Rt) using the Percutaneo us technique. 14:30:59 A LEAD, PLEXA PRO-MRI DF 65/15 was inserted and positioned in the RV. 14:31:04 Lead placement verified under fluoroscopy 14::44 The RV lead impedance and threshold being tested. 14:46:58 Repositioning RV lead 14:47:55 The RV lead impedance and threshold being tested. 14:52:24 Repositioning RV lead 14:53:35 The RV lead impedance and threshold being tested. 14:54:10 The RV lead was sutured to the fascia. 14:56:38 Antibiotic sponge removed from the surgical pocket. 14:56:42 A DEFIBRILLATOR, INTICA 7 VR-T DX VVE-VDDR was connected and placed in the pocket. 15:00:38 A two Joule test was performed. 15:00:56 The DFT was Success at 20 Joules, 88 Ohms lead impedance and 400 ms charge time. 15:01:25 The pocket was closed. Second Sponge And Instrument Count Done by Cha Storey RN. 15:01:38 Hypo's: 3, Sponges: 25, Bovie/scratch: 2 Sutures: 6, Blades: 2, Instruments: ~INSTRU~, Syveck Patches: 0 15:04:56 Implant Procedure was performed. 15:05:02 A ICD Implant . (Single) 15:05:14 PACU called. Spoke to Dalia 15:17:24 Bedside Report will be given. The Final Sponge And Instrument Count Done by Cha Storey RN. 15:17:29 Hypo's: 3, Sponges: 25, Bovie/scratch: 2 Sutures: 6, Blades: 2, Instruments: 26, Syveck Patches: 0 15:18:18 Case End (Physician broke scrub) 15:18:41 Steri-strips and a sterile dressing applied to site. Assessment: Final Case, HR=62 BPM, Rhythm=sr, MPYS=433/55 mmhg, Chest Pain=0, Edema=None, Color =Normal, Skin = Warm, Dry 15:18:57 Neurological: State=Alert, Ox3, ALVARES Respiration: Resp=18 B/min, ZpN8=528 % 15:19:19 Cine recording checked. 15:19:31 No case complications noted. 15:19:33 Sterile dressing applied to site 15:19:38 Implantable Device card placed in patient's chart. 15:19:40 Defibrillator and ground pads removed. Skin intact. 15:19:49 A sling was placed on the affected arm. (right) 15:20:35 PACU called. Spoke to Dalia again. 15:30:41 Patient moved to stretcher End Study - Contrast Media Used In Study Contrast Total Opened (mL) Total Used (mL) Total Wasted (mL) Omnipaque 15 15 0 End Study - Radiation Exposure Fluoro Time (minutes) 7.3 End Study - Patient Disposition Complications Transferred To Telemetry Bed
--- NOTE | 2018-02-18 15:40 | MP ---
cc: Toño Gauthier MD, Joshua A MD DATE OF OPERATION: 02/18/2018 PROCEDURE PERFORMED: Single chamber (with atrial sensing capability) AICD implantation via the right subclavian vein. INDICATIONS: Persistent nonischemic cardiomyopathy with ejection fraction less than 35%, primary prevention of sudden cardiac . OPERATIVE NOTES: The patient was brought to the operating suite in a fasting state after having signed informed consent. The right upper chest was prepped and draped as per policy and anesthetized with 1% lidocaine. A transverse incision was made inferior to the right clavicle and using blunt dissection, a subcutaneous pocket was formed down to the pectoralis fascia. Using modified Seldinger technique, central venous access was obtained via the right subclavian vein after administration of dye through a left arm peripheral IV. An 8-Ukrainian sheath was placed and through this sheath, a ventricular active fixation lead was introduced. It had to be repositioned 3 times as apical positions did not provide an adequate current of injury. It was finally positioned in the septal region where good current of injury, stimulation threshold (0.8 volts) and sensitivity (24.2 millivolts) were demonstrated. This lead was secured into place using 2-0 silk ties down to the pectoralis fascia. Atrial sensitivity was also measured at 8.3 millivolts. The lead was then connected to the AICD generator, which is a Biotronik Intica device. The lead and the generator were placed into the subcutaneous pocket. Testing of the device was performed. Ventricular fibrillation was induced. The patient was successfully rescued with a 20-joule shock. The pocket was closed using 3-0 Vicryl interrupted stitches in 2-3 layers to close the subcutaneous tissue and then 4-0 Monocryl running stitch to close the subcuticular tissue. Overlapping Steri-Strips and a dressing were applied. There were no apparent, immediate complications. CONCLUSIONS: 1. Successful single chamber (with atrial sensing capability) AICD implantation via the right subclavian vein using a Biotronik Intica automated implantable cardioverter defibrillator generator. 2. Status post defibrillation threshold testing. MD VERNON Strong/ANGELIKA , 03:22 PM , 03:39 PM GUS
[2018-02-18] MEDS ORDERED: traMADol HCL 50 MG TAB PO PRN (15:45)
[2018-02-18] MEDS ORDERED: HYDROmorphone HCL PF 2 MG/ML VIAL ONE ×2 (15:54→16:15)
--- NOTE | 2018-02-18 16:26 | RADRPT ---
EXAM DATE: 02/18/2018 4:14 PM EDT AGE/SEX: 52 years / Female INDICATIONS: Post ICD CLINICAL DATA: This is the patient's initial encounter. Patient reports that signs and symptoms have been present for 1 day and indicates a pain score of 0/10. MEDICAL/SURGICAL HISTORY: None. None. COMPARISON: [facility] [place], CHEST PA & LAT, 01/19/2018. . FINDINGS: There is a pacing device in place from the right subclavian approach. The heart size is upper limits of normal. There is mild prominence of the interstitium diffusely. There is some focal increased dens ity at the left base. No effusion is seen. CONCLUSION: New pacing device in place from the right subclavian approach with the tip overlying the right ventri cular apex. A pneumothorax is not seen. Mild prominence of interstitium. This could represent some compressive changes as this is a chest x-r ay with a poor respiratory effort. Mild edema could have a similar appearance. Increased density at the left lateral base which has been present on all prior exams and likely relat ed to a cardiac fat pad. Electronically signed by: Toni Lamar MD 02/18/2018 4:25 PM EDT
[2018-02-18] MEDS ORDERED: DO NOT ADM ANY ANTICOAGULANT DRUGS PRN (17:00)
[2018-02-18] MEDS: ACETAMINOPHEN/CODEINE 300 MG/30 MG TAB PO PRN (20:28)
[2018-02-18] MEDS ORDERED: CARVEDILOL 6.25 MG TAB PO SCH (21:00)
[2018-02-18] MEDS ORDERED: GABAPENTIN 100 MG CAP PO SCH (21:00)
[2018-02-19] VITALS (12 sets, daily range): BP systolic 109–112; BP diastolic 58–62; PULSE 70–84; RESP 16; TEMP 98.1–98.3; O2SAT 92–95
[2018-02-19] MEDS: ACETAMINOPHEN/CODEINE 300 MG/30 MG TAB PO PRN (02:00)
[2018-02-19] MEDS ORDERED: VANCOMYCIN INJ 1,000 MG in SODIUM CHLOR 0.9% 250 ML INJ 250 ML IV SCH (03:30)
--- NOTE | 2018-02-19 08:39 | PD.CARD.PN ---
Subjective Subjective Remarks Mild to moderate incisional pain. No dyspnea, dizziness. Objective Medications Item Value Date Time Aspirin 81 mg 02/19/18 0900 (Ecotrin Ec) DAILY/PO Furosemide 20 mg 02/19/18 0900 (Lasix) DAILY/PO Potassium Chloride 10 meq 02/19/18 0900 (KCl) DAILY/PO Sacubitril/ 1 tab 02/19/18 0900 Valsartan DAILY/PO (Entresto 24-26 Mg) Carvedilol 6.25 mg 02/18/18 2100 (Coreg) BID/PO 02/18/182027 Current Medications Medications (Trade) Dose Ordered Sig/Carmen Route Start Time Stop Time Status Last Admin Sodium Chloride 1,000 ml @ 30 mls/hr Q24H IV 02/18/18 12:30 Cefazolin Sodium/ Dextrose 50 ml @ 100 mls/hr BEAM BUILDER IV 02/18/18 12:30 02/21/18 12:29 Vancomycin/Sodium Chloride 200 ml @ 200 mls/hr BEAM BUILDER IV 02/18/18 12:30 02/21/18 12:29 (Betadine 5% Antisepsis Kit) 2 applic BEAM BUILDER EACH NARE 02/18/18 12:30 02/21/18 12:29 (Bactroban Nasal 2% Oint) 1 applic BEAM BUILDER NASAL 02/18/18 12:30 02/21/18 12:29 (Chlorhexidine 2% Cloth) 3 pack BEAM BUILDER TOPICAL 02/18/18 12:30 02/21/18 12:29 Lactated Ringer's 1,000 ml @ 30 mls/hr Q24H PRN IV 02/18/18 12:30 02/21/18 12:29 Sodium Chloride 500 ml @ 30 mls/hr [id number] PRN IV 02/18/18 12:30 02/21/18 12:29 (Lopressor) 25 mg BEAM BUILDER PRN PO 02/18/18 12:30 02/21/18 12:29 (Betadine 5% Antisepsis Kit) 1 applic BEAM BUILDER PRN EACH NARE 02/18/18 12:30 02/21/18 12:29 (Chlorhexidine 2% Cloth) 3 pack BEAM BUILDER PRN TOPICAL 02/18/18 12:30 02/21/18 12:29 (Tylenol-Codeine #3) 1 tab Q4H PRN PO 02/18/18 15:30 02/19/18 02:00 (Ecotrin Ec) 81 mg DAILY PO 02/19/18 09:00 (Coreg) 6.25 mg BID PO 02/18/18 21:00 02/18/18 20:28 (Lasix) 20 mg DAILY PO 02/19/18 09:00 (Neurontin) 100 mg HS PO 02/18/18 21:00 02/18/18 20:28 (Paxil) 20 mg DAILY PO 02/19/18 09:00 (KCl) 10 meq DAILY PO 02/19/18 09:00 (Entresto 24-26 Mg) 1 tab DAILY PO 02/19/18 09:00 (Ultram) 50 mg Q8H PRN PO 02/18/18 15:45 (Protonix) 20 mg DAILY PO 02/19/18 09:00 ([facility] Nursing Information) ALL NURSING DEPARTME... UNSCH PRN .XX 02/18/18 17:00 02/19/18 16:59 Vital Signs / I&O Vital Signs Date Time Temp Pulse Resp B/P (MAP) Pulse Ox O2 Delivery O2 Flow Rate FiO2 02/19/18 06:11 72 02/19/18 05:18 74 02/19/18 04:57 72 02/19/18 04:51 98.2 70 112/58 (76) 92 02/19/18 03:43 74 02/19/18 03:08 16 02/19/18 02:08 75 02/19/18 01:12 74 02/19/18 00:16 71 02/19/18 00:04 98.1 75 112/62 (79) 95 02/18/18 23:25 78 02/18/18 22:29 72 02/18/18 21:41 74 02/18/18 20:41 97.8 75 119/66 (83) 98 02/18/18 19:00 75 02/18/18 17:49 98.0 77 18 116/89 (98) 97 02/18/18 17:30 77 19 95/55 (68) 98 Nasal Cannula 2 02/18/18 17:00 75 15 100/54 (69) 97 Nasal Cannula 2 02/18/18 16:45 74 16 104/59 (74) 97 Nasal Cannula 2 02/18/18 16:30 73 12 94/52 (66) 97 Nasal Cannula 2 02/18/18 16:15 68 12 120/63 (82) 99 Nasal Cannula 2 02/18/18 16:00 71 12 120/65 (83) 99 Nasal Cannula 2 02/18/18 15:40 97.9 73 12 127/60 (82) 97 Nasal Cannula 2 02/18/18 12:40 98.0 72 18 117/69 (85) 96 I/O 02/18/18 02/18/18 02/18/18 02/19/18 02/19/18 02/19/18 07:00 15:00 23:00 07:00 15:00 23:00 Intake Total 0 ml 360 ml Output Total 0 ml 400 ml Balance 0 ml -40 ml Intake Oral 0 ml 360 ml Output Urine Total 0 ml 400 ml Physical Exam AICD site clean, dry, intact, no hematoma. Moderate tenderness. No warmth, drainage, erythema. Laboratory Laboratory Tests Test 02/18/18 12:28 White Blood Count 6.9 TH/MM3 Red Blood Count 4.76 MIL/MM3 Hemoglobin 13.5 GM/DL Hematocrit 40.9 % Mean Corpuscular Volume 86.1 FL Mean Corpuscular Hemoglobin 28.3 PG Mean Corpuscular Hemoglobin Concent 32.9 % Red Cell Distribution Width 13.8 % Platelet Count 333 TH/MM3 Mean Platelet Volume 8.6 FL Neutrophils (%) (Auto) 46.5 % Lymphocytes (%) (Auto) 41.1 % Monocytes (%) (Auto) 8.4 % Eosinophils (%) (Auto) 3.3 % Basophils (%) (Auto) 0.7 % Neutrophils # (Auto) 3.2 TH/MM3 Lymphocytes # (Auto) 2.8 TH/MM3 Monocytes # (Auto) 0.6 TH/MM3 Eosinophils # (Auto) 0.2 TH/MM3 Basophils # (Auto) 0.0 TH/MM3 CBC Comment DIFF FINAL Differential Comment Prothrombin Time 10.8 SEC Prothromb Time International Ratio 1.1 RATIO Activated Partial Thromboplast Time 33.9 SEC Blood Urea Nitrogen 9 MG/DL Creatinine 0.85 MG/DL Random Glucose 101 MG/DL Calcium Level 9.1 MG/DL Sodium Level 140 MEQ/L Potassium Level 3.6 MEQ/L Chloride Level 106 MEQ/L Carbon Dioxide Level 25.2 MEQ/L Anion Gap 9 MEQ/L Estimat Glomerular Filtration Rate 70 ML/MIN Imaging Last 24 hours Impressions Chest X-Ray 02/18/18 1530 Signed Impressions: CONCLUSION: New pacing device in place from the right subclavian approach with the tip over lying the right ventricular apex. A pneumothorax is not seen. Mild prominence of interstitium. This could represent some compressive changes as this is a chest x-ray with a poor respiratory effort. Mild edema could have a similar appearance. Increased density at the left lateral base which has been present on all prior exams and likely related to a cardiac fat pad. Assessment and Plan Problem List: (1) S/P implantation of automatic cardioverter/defibrillator (AICD) ICD Codes: Z95.810 - Presence of automatic (implantable) cardiac defibrillator Status: Acute Plan: Stable overnight. No pneumothorax on post op chest x-ray. AICD site OK. AICD interrogation shows stable, good pacing/defibrillatory parameters. To discharge today, same home medications plus Levaquin 500 mg qd for 6 days and PRN Vicodin. One week f/u for incision site recheck. (2) Dilated cardiomyopathy ICD Codes: I42.0 - Dilated cardiomyopathy Status: Chronic Plan: Overall stable. Compensated. To continue beta jericho, Entresto, diuretic therapy. Follow up with Dr. Curry release specialist. Code Status full code Discussed Condition With patient Toño Gauthier MD Feb 19, 2018 08:39
[2018-02-19] MEDS ORDERED: HYDR-3111 PO (08:43)
[2018-02-19] MEDS ORDERED: LEVA500T33 PO (08:43)
[2018-02-19] MEDS ORDERED: ASPIRIN EC 81 MG TABEC PO SCH (09:00)
[2018-02-19] MEDS ORDERED: PARoxetine HCL 20 MG TAB PO SCH (09:00)
[2018-02-19] MEDS ORDERED: POTASSIUM CHLORIDE 10 MEQ CONTROLLED RELEASE TAB PO SCH (09:00)
[2018-02-19] MEDS ORDERED: PANTOPRAZOLE SOD 20 MG DELAYED RELEASE TAB PO SCH (09:00)
[2018-02-19] MEDS ORDERED: FUROSEMIDE 20 MG TAB PO SCH (09:00)
[2018-02-19] MEDS ORDERED: SACUBITRIL/VALSARTAN 24 MG-26 MG TAB PO SCH (09:00)
--- NOTE | 2018-02-19 18:46 | EKG ---
Date Performed: 02/18/2018 Time Performed: 13:01:42 PTAGE: 52 years EKG: Sinus rhythm . Inferior/lateral ST changes are nonspecific Borderline ECG Since the PREVIOUS TRACING , no significant change noted PREVIOUS TRACIN01/20/2018 02.04 DOCTOR: Anabelle Ariza Interpretating Date/Time 02/19/2018 18:43:53
== END 2018-02-19 10:05 | disposition home or self-care (01) ==
LOC: HDOC 11:55 → HDIC 11:56 → HCIS 17:46 → HDOC 02-19 10:05
PROVIDERS: ATTEND Internal Medicine Cardiovascular Disease
DX: I11.0 Hypertensive heart disease with heart failure (principal); I50.9 Heart failure, unspecified; I42.0 Dilated cardiomyopathy; E78.5 Hyperlipidemia, unspecified; F17.210 Nicotine dependence, cigarettes, uncomplicated; J44.9 Chronic obstructive pulmonary disease, unspecified; F41.9 Anxiety disorder, unspecified; I25.2 Old myocardial infarction; Z79.82 Long term (current) use of aspirin
CPT/HCPCS: 00530; 33249; 71045; 80048; 85025; 85610; 85730; 93005; 93641; C1722; C1777; J0690; J1170; J2250; J2370; J3010; J3370; Q9967

== ENCOUNTER 2018-04-26 17:15 | Observation (INO) ==
[2018-04-26] MEDS ORDERED: HYDROmorphone PF Inj 2 MG/ML Vial IV.PUSH ONE (18:36)
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
[2018-04-26] MEDS ORDERED: Bisacodyl 10 MG Supp RECTAL PRN (19:20)
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
--- NOTE | 2018-04-26 19:50 | XR ---
EXAM DATE: 04/26/2018 7:08 PM EDT AGE/SEX: 52 years / Female INDICATIONS: Known bone and jennie fractures with recent neurological deficits and loss of ability to s upinate and pronate. CLINICAL DATA: This is the patient's subsequent encounter. Patient reports that signs and symptoms h ave been present for 2 weeks and indicates a pain score of 10/10. MEDICAL/SURGICAL HISTORY: None. . ORIF Right forearm June 2017. COMPARISON: [facility] [place], FOREARM RIGHT 2V, 04/11/2018. . FINDINGS: A mildly angulated displaced fracture is identified through the mid radial shaft. Intramedullary jennie is identified within the radius which is also fractured. Ulna is intact. CONCLUSION: Mildly displaced fracture of the right radius and right radial intramedullary jennie. Electronically signed by: Rick Dodge MD 04/26/2018 7:48 PM EDT
[2018-04-26 20:05] LABS: Baso # (Auto) 0.1 th/mm3 (0.0-0.2); Baso % (Auto) 1.3 % (0.0-2.0); Eos # (Auto) 0.3 th/mm3 (0.0-0.4); Eos % (Auto) 2.6 % (0.0-4.0); Hematocrit 37.9 % (35.0-46.0); Hemoglobin 13.5 gm/dL (11.6-15.3); Lymph # (Auto) 3.3 th/mm3 (1.0-4.8); Lymph % (Auto) 29.5 % (9.0-44.0); Mean Corpuscular HGB Conc 35.7 % (32.0-36.0); Mean Corpuscular Hemoglobin 31.2 pg (27.0-34.0); Mean Corpuscular Volume 87.5 fL (80.0-100.0); Mean Platelet Volume 8.9 fL (7.0-11.0); Mono # (Auto) 0.9 th/mm3 (0.0-0.9); Neut # (Auto) 6.5 th/mm3 (1.8-7.7); Neut % (Auto) 58.6 % (16.0-70.0); Platelet Count 294 th/mm3 (150-450); Red Blood Count 4.33 mil/mm3 (4.00-5.30); Red Cell Distribution Width 14.1 % (11.6-17.2); White Blood Count 11.1 th/mm3 (4.0-11.0)
[2018-04-26 20:20] LABS: Activated Partial Thrombo Time 28.3 sec (24.3-30.1); INR 1.1 Ratio; Prothrombin Time 10.7 sec (9.8-11.6)
[2018-04-26 20:24] LABS: Calcium 8.2 mg/dL (8.5-10.1); Carbon Dioxide 23.6 meq/L (21.0-32.0)
[2018-04-26] MEDS: Senna/Docusate Sodium 8.6/50 MG Tablet PO SCH (22:24)
[2018-04-26] MEDS: Carvedilol 12.5 MG Tablet PO SCH (22:24)
[2018-04-26] MEDS: HYDROmorphone PF Inj 2 MG/ML Vial IV.PUSH PRN (22:40)
[2018-04-27] MEDS: HYDROmorphone PF Inj 2 MG/ML Vial IV.PUSH PRN (03:17)
[2018-04-27] MEDS: Carvedilol 12.5 MG Tablet PO SCH ×2 (05:55→09:10)
[2018-04-27] MEDS ORDERED: Chlorhexidine Gluconate 2% 1 Pack (2 Cloths) TOPICAL SCH (06:15)
[2018-04-27] MEDS ORDERED: Sodium Chlor 0.9% Inj 500 ML IV.SIG SCH (07:00)
[2018-04-27 07:47] LABS: Baso # (Auto) 0.1 th/mm3 (0.0-0.2); Baso % (Auto) 0.9 % (0.0-2.0); Eos # (Auto) 0.2 th/mm3 (0.0-0.4); Hematocrit 41.1 % (35.0-46.0); Hemoglobin 13.4 gm/dL (11.6-15.3); Lymph # (Auto) 2.2 th/mm3 (1.0-4.8); Lymph % (Auto) 20.8 % (9.0-44.0); Mean Corpuscular HGB Conc 32.5 % (32.0-36.0); Mean Corpuscular Hemoglobin 29.1 pg (27.0-34.0); Mean Corpuscular Volume 89.6 fL (80.0-100.0); Mean Platelet Volume 8.9 fL (7.0-11.0); Mono # (Auto) 0.9 th/mm3 (0.0-0.9); Mono % (Auto) 8.4 % (0.0-8.0); Neut # (Auto) 7.1 th/mm3 (1.8-7.7); Neut % (Auto) 67.9 % (16.0-70.0); Platelet Count 268 th/mm3 (150-450); Red Blood Count 4.59 mil/mm3 (4.00-5.30); Red Cell Distribution Width 14.5 % (11.6-17.2); White Blood Count 10.4 th/mm3 (4.0-11.0)
[2018-04-27 07:50] LABS: Alkaline Phosphatase 93 U/L (45-117); Total Protein 7.1 g/dL (6.4-8.2)
[2018-04-27 07:54] LABS: Alanine Aminotransferase 13 U/L (10-53); Albumin 3.4 g/dL (3.4-5.0); Anion Gap 10 meq/L (5-15); Blood Urea Nitrogen 14 mg/dL (7-18); Calcium 8.4 mg/dL (8.5-10.1); Carbon Dioxide 25.9 meq/L (21.0-32.0); Chloride 105 meq/L (98-107); Glomerular Filtration Rate 34 mL/min (>89); Glucose,Random 99 mg/dL (74-106); Sodium 141 meq/L (136-145)
[2018-04-27 07:56] LABS: Aspartate Aminotransferase 13 U/L (15-37); Potassium 3.8 meq/L (3.5-5.1)
[2018-04-27] MEDS ORDERED: Gabapentin 100 MG Capsule PO SCH (09:00)
[2018-04-27] MEDS ORDERED: Furosemide 20 MG Tablet PO SCH (09:00)
[2018-04-27] MEDS ORDERED: Escitalopram 10 MG Tablet PO SCH (09:00)
[2018-04-27] MEDS: Senna/Docusate Sodium 8.6/50 MG Tablet PO SCH (09:11)
[2018-04-27 10:16] VITALS: RESP 18
[2018-04-27 11:03] VITALS: BP 119/58; PULSE 100; TEMP 99.5; O2SAT 91
--- NOTE | 2018-04-27 11:13 | P.CONOP ---
[facility] Orthopedics Consult Note - [facility] Consult date: 04/27/18 Chief complaint: right forearm fracture with progressive Narrative: Yanna is a 52-year-old female who has multiple medical problems including hypertension, cardiomyopathy, and tobacco abuse. She was involved in an accident in June 2017. She had surgery for right radius fracture in [place]. She has continued to smoke. She has developed a nonunion. She has noticed increased pain in the form. She is also noticed weakness and numbness of her hand and forearm. She describes numbness from the elbow to her fingers. Pain is worse with movement. She is improved with rest. She is having difficulty with any use of her right arm. She has been admitted for pain control. Review of Systems Patient denies fevers, chills, weight loss, headache, visual changes, hearing loss, chest pain, palpitations, shortness of breath, nausea, vomiting, no urinary changes, diarrhea, bowel changes, neck pain, back pain, skin rashes, weakness of other extremities, easy bleeding, enlarged lymph nodes, anxiety, or depression. She complains of weakness and numbness of her right arm and hand. [facility] - History History Provided By: Patient - Medical History Medical History: Medical History (Last Reviewed 04/12/18 @ 21:49 by Juancarlos Parker) CHF (congestive heart failure) Cardiac defibrillator in place H/O: hysterectomy Pacemaker Right arm fracture - Surgical History Surgical History: Surgical History (Last Reviewed 04/12/18 @ 21:49 by Juancarlos Parker) History of cardiac cath - Family History Family History: Family History (Last Updated 04/27/18 @ 11:06 by Tiburcio Childs MD) Other Family history of acute myocardial infarction - Tobacco History Second Hand Smoke Exposure: Yes Tobacco Use In Past 30 Days: Yes Smoking Status: Current every day smoker Tobacco Type: Cigarettes - Alcohol History How Often Do You Have a Drink Containing Alcohol: Monthly or less - Substance Use History Substance History: No History of Abuse - Travel History Recent Travel in the [place] Within the Last 8 Weeks: No Recent Travel Out of the Country Within the Last 8 Weeks: No - Immunization History Tetanus Immunization: Unsure Hx Influenza Vaccine This Season: No Medications and Allergies Active Medications: Active Medications Al Hydroxide/Mg Hydroxide (Milk Of Magnjosesito Liq) 30 ml PO Q12H PRN PRN Reason: Mild Constipation Bisacodyl (Dulcolax Supp) 10 mg RECTAL DAILY PRN PRN Reason: SEVERE CONSITIPATION Carvedilol (Coreg) 12.5 mg PO BID [facility] Last Admin: 04/27/18 09:10 Dose: Not Given Chlorhexidine Gluconate (Chlorhexidine 2% Cloth) 3 pack [employer] CONTRACT [employer] [facility] Stop: 04/30/18 06:03 Escitalopram Oxalate (Lexapro) 5 mg PO DAILY [facility] Last Admin: 04/27/18 09:10 Dose: Not Given Furosemide (Lasix) 20 mg PO DAILY [facility] Last Admin: 04/27/18 09:10 Dose: Not Given Gabapentin (Neurontin) 100 mg PO DAILY [facility] Last Admin: 04/27/18 09:11 Dose: Not Given Hydromorphone HCl (Dilaudid Pf Inj) 1 mg IV.PUSH Q4H PRN PRN Reason: PAIN 6-10 Last Admin: 04/27/18 03:17 Dose: 1 mg Lactated Ringer's (Lr 1000 Ml Inj) 1,000 mls @ 30 mls/hr IV.SIG .Q24H [facility] Stop: 04/30/18 06:03 Last Infusion: 04/27/18 10:37 Dose: Infused Sodium Chloride (Ns Inj) 500 mls @ 30 mls/hr IV.SIG .Q10H [facility] Stop: 04/30/18 06:03 Lactulose (Lactulose Liq) 30 ml PO DAILY PRN PRN Reason: SEVERE CONSITIPATION Ondansetron HCl (Zofran Inj) 4 mg IV.PUSH Q6H PRN PRN Reason: NAUSEA OR VOMITING Povidone Iodine (Betadine 5% Antisepsis Kit) 1 applicatio EACH [employer] WR[employer] [facility] Stop: 04/30/18 06:03 Sacubitril/Valsartan (Entresto 49 Mg/51 Mg) 1 tab PO BID [facility] Last Admin: 04/27/18 09:10 Dose: Not Given Senna/Docusate Sodium (Karine-Colace) 1 tab PO BID [facility] Last Admin: 04/27/18 09:11 Dose: Not Given Sennosides (Senokot) 17.2 mg PO Q12H PRN PRN Reason: Moderate Constipation Allergies Allergy/AdvReac Type Severity Reaction Status Date / Time latex Allergy Severe Rash Verified 04/26/18 17:39 varenicline Allergy Severe Hallucinati Verified 04/26/18 17:39 ons morphine Allergy Unknown Nausea/Vomi Verified 04/26/18 17:39 ting Home Medications Medication Instructions Recorded Confirmed Type aspirin 81 mg PO DAILY 04/26/18 04/26/18 History carvedilol 12.5 mg PO BID 04/26/18 04/26/18 History escitalopram oxalate [Lexapro] 5 mg PO DAILY 04/26/18 04/26/18 History furosemide 1 tab PO DAILY 04/26/18 04/26/18 History gabapentin 100 mg PO DAILY 04/26/18 04/26/18 History potassium chloride 1 tab PO DAILY 04/26/18 04/26/18 History promethazine 25 mg PO Q4-6H PRN 04/26/18 04/26/18 History sacubitril-valsartan [Entresto] 1 tab PO BID 04/26/18 04/26/18 History tramadol 50 mg PO BID PRN 04/26/18 04/26/18 History Exam Vital signs: Vital Signs 04/26/18 17:20 04/26/18 20:10 04/26/18 21:30 Temperature 98.3 F Pulse Rate 99 H 78 Respiratory Rate 14 16 15 Blood Pressure 120/58 L 145/85 H 131/62 Pulse Oximetry 100 99 97 04/26/18 22:11 04/26/18 23:10 04/27/18 00:00 Temperature 98.3 F Pulse Rate 77 Respiratory Rate 18 18 17 Blood Pressure 139/79 Pulse Oximetry 98 04/27/18 01:04 04/27/18 03:45 04/27/18 04:00 Temperature 98.3 F Pulse Rate 80 Respiratory Rate 18 17 17 Blood Pressure 129/70 Pulse Oximetry 97 04/27/18 05:38 04/27/18 08:00 04/27/18 11:01 Temperature 99.6 F 99.6 F 99.5 F Pulse Rate 87 91 H 100 H Respiratory Rate 17 18 18 Blood Pressure 101/56 L 108/58 L 119/58 L Pulse Oximetry 91 L 92 L 91 L Intake & Output 04/26/18 04/27/18 04/27/18 18:59 06:59 18:59 Intake Total 0 / 0 Balance 0 / 0 Weight 67.132 kg 67.1 kg Intake: IV 0 / 0 LR 1000 mL Inj 1,000 ML @ 30 0 / 0 mls/hr IV.SIG .Q24H [facility] Rx#: [id number] Other: Date of Last Bowel Movement 04/26/18 04/26/18 Weight On Admission 67.1 kg Narrative: Yanna is a 52-year-old female. She is anxious and tearful. She complains of right arm pain. General: Awake and alert. No acute distress. Appears well-developed well- nourished Head: Normocephalic, atraumatic pupils are equal Neck: Soft, nontender, trachea midline Abdomen: Soft, nondistended Examination of left arm reveals no pain or deformity with shoulder, elbow, or wrist motion. Skin is intact. Radial pulse is palpable. Normal capillary refill in fingers. Sensation is intact in radial, ulnar, and median nerve distributions. 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 No lymphadenopathy noted. Examination of right arm reveals well-healed surgical incision and skin graft on her right forearm. She has no tenderness about her shoulder or elbow. She has diminished sensation throughout her forearm and hand. She has minimal flexion and extension of her fingers. Radial pulse is palpable. Her hand is warm and well-perfused. She has obvious deformity of her forearm secondary to fracture nonunion. Results - Labs Result Diagrams: 04/27/18 06:36 04/27/18 06:36 Labs: Laboratory Results - last 24 hr 04/26/18 04/26/18 04/26/18 00:30 19:30 19:30 WBC 11.1 H RBC 4.33 Hgb 13.5 Hct 37.9 MCV 87.5 MCH 31.2 MCHC 35.7 RDW 14.1 Plt Count 294 D MPV 8.9 Neut % (Auto) 58.6 Lymph % (Auto) 29.5 [place] % (Auto) 8.0 Eos % (Auto) 2.6 Baso % (Auto) 1.3 Neut # (Auto) 6.5 Lymph # (Auto) 3.3 [place] # (Auto) 0.9 Eos # (Auto) 0.3 Baso # (Auto) 0.1 WBC Differential . Differential Comment Auto diff final PT 10.7 INR 1.1 APTT 28.3 Sodium Potassium 3.6 Chloride Carbon Dioxide Anion Gap BUN Creatinine Estimated GFR Random Glucose Calcium Total Bilirubin AST ALT Alkaline Phosphatase Total Protein Albumin 04/26/18 04/27/18 04/27/18 19:30 06:36 06:36 WBC 10.4 RBC 4.59 Hgb 13.4 Hct 41.1 MCV 89.6 MCH 29.1 MCHC 32.5 RDW 14.5 Plt Count 268 MPV 8.9 Neut % (Auto) 67.9 Lymph % (Auto) 20.8 [place] % (Auto) 8.4 H Eos % (Auto) 2.0 Baso % (Auto) 0.9 Neut # (Auto) 7.1 Lymph # (Auto) 2.2 [place] # (Auto) 0.9 Eos # (Auto) 0.2 Baso # (Auto) 0.1 WBC Differential . Differential Comment Auto diff final PT INR APTT Sodium 136 141 Potassium 6.0 H D 3.8 D Chloride 105 105 Carbon Dioxide 23.6 25.9 Anion Gap 7 10 BUN 13 14 Creatinine 1.03 H 1.57 H Estimated GFR 56 L 34 L Random Glucose 112 H 99 Calcium 8.2 L 8.4 L Total Bilirubin 0.3 AST 13 L ALT 13 Alkaline Phosphatase 93 Total Protein 7.1 Albumin 3.4 - Diagnostic results Imaging: Impressions Forearm X-Ray 04/26/18 18:33 CONCLUSION: Mildly displaced fracture of the right radius and right radial intramedullary jennie. Assessment and Plan - Problem List (1) Closed fracture of right forearm Code(s): S52.91XA - Unspecified fracture of right forearm, initial encounter for closed fracture Status: Acute Qualifiers: Encounter type: sequela Qualified Code(s): S52.91XS - Unspecified fracture of right forearm, sequela (2) Intractable pain Code(s): R52 - Pain, unspecified Status: Acute (3) Tobacco abuse Code(s): Z72.0 - Tobacco use Status: Acute (4) CHF (congestive heart failure) Code(s): I50.9 - Heart failure, unspecified Status: Acute - Assessment and Plan I discussed with patient treatment options. At this point she has a complex and difficult problem. 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 This is likely a fixable condition but would need a major surgery. She would need removal of hardware, open treatment of nonunion, iliac crest bone grafting, and open reduction internal fixation. The risk and benefits of surgery were discussed in depth with patient. The risk of surgery include bleeding, infection, injuries to arteries, nerves, or blood vessels, infection, wound complications, nonunion, malunion, painful hardware, and need for further surgery. I also discussed medical complications including blood clots, pneumonia, stroke, heart attack, and . Informed consent was obtained and all questions were answered. I discussed with her that she would greatly benefit from smoking cessation prior to surgery. Surgery at this time would likely yield a poor functional outcome with possible wound complications, infection, and continued nonunion. I discussed with her the need to stop smoking immediately. She may need to follow-up with her primary care physician if she needs any medications to help assist her quitting. She does state that she is allergic to Chantix. She will follow-up with me once she has quit smoking and I will then plan to proceed with surgery She does have diminished sensation from the elbow to her fingers. I do not believe this is directly related to her fracture. I would recommend a neurology consult to evaluate this sensation loss and weakness of her hand. She may need EMGs or nerve conduction studies. This could likely be done as an outpatient. A mid-level provider in my office (nurse practitioner or physician city carrier assistant) may see this patient on follow-up visits and continue to implement the objectives of this plan including: Starting or adjusting medications, injections , cast application, orthotics, brace application, physical therapy, radiological studies (including x-ray, MRI, CT, ultrasound, bone scan), vascular studies, neurologic studies, specialist consultation, and proceeding with surgical management, as appropriate.
--- NOTE | 2018-04-27 11:34 | P.DS ---
Date of admission: 04/26/18 19:30 Primary care physician: Codey Escalante MD Attending physician on discharge: Jack Bazzi Anticipated date of discharge: 04/27/18 Brief History from admission: This is a 52-year-old female with a PMH of HTN, Nonischemic Cardiomyopathy (EF < 35%), s/p AICD and Tobacco Abuse who presented to the ER w/ complaints of right forearm pain. Pt had previous right forearm injury in June 2017 while in [place] requiring surgical intervention and significant rehab to regain function of right hand/fingers. Had been doing well until approx 2wks ago when she had severe pain in right forearm after lifting a box. Seen in ER on 04/11/18 , Right Forearm X-ray w/ fracture of intramedullary jennie w/ minimal displacement. Was referred to Dr. Ricks for outpatient follow up. States the "church secretary told me he wouldn't see me until I stopped smoking for 30 days", notes she is down to 5 cigarettes per day. Presents today w/ increasing pain to right arm/hand, swelling and decreased sensation to hand. Pain is severe, constant, 10/10, non-radiating, worse w/ movement. Dr. Jimenez consulted, recommended admission w/ eval by Dr. Ricks in am for possible surgical intervention. DS: Medications - Discharge Medications Prescriptions: hydrocodone-acetaminophen [[place]] 1 tab PO Q4H PRN #18 tab PRN Reason: Arm pain 2-10 DS: Summary Hospital Course: 52-year-old female with past medical history significant for hypertension, nonischemic cardiomyopathy with an EF of less than 35% with AICD implanted, and tobacco abuse who presents to the emergency department on 04/26 with complaints of right forearm pain. Patient had apparently had original injury in June 2017 while in [place] and had emergency surgery followed by rehab with improvements in hand and finger function. Apparently 2 weeks ago patient had severe pain to her right forearm while lifting a box. She was seen on 04/11 in the emergency department and imaging revealed fracture of intramedullary jennie with minimal displacement. She was referred to Dr. Ricks for follow-up however was unable to follow-up with Dr. Ricks since she had not abstained from smoking for 30 days. She was admitted for intractable pain and Dr. Jimenez consulted however consult was later placed to Dr. Ricks for further evaluation. Who discussed with patient the need to stop smoking immediately prior to moving forward with surgery. Dr. Ricks also recommended following up with neurology for evaluation of sensation loss and weakness. Recommended EMGs or nerve conduction studies, this could be done on an outpatient basis. Discussed with patient and friends at bedside as well as nurse in charge nurse. Patient will need to follow-up with Dr. Ricks once she is tobacco free for at least 30 days. Discussed with patient that we will be providing her with several days of pain medication and advise follow-up visit with Dr. Ricks as well as neurologist of her choice. Time of my evaluation patient is upset however after further discussion agrees that she needs to quit smoking. Reports her pain is 8/10 with significant right hand weakness. No reports of fevers, chills, nausea, vomiting, diarrhea, cough or shortness of breath. Discussed discharge, patient is agreeable. E-force checked, prescription for oxycodone/acetaminophen 04/13 with quantity of 12, tramadol 04/14 with quantity of 60. Rx for [place] provided. - Time Spent with Patient Total time spent providing and/or coordinating discharge services: Less than 30 minutes - Quality: VTE Deep Vein Thrombosis/Pulmonary Embolism Present on Admission: No Exam Vital signs: Vital Signs 04/26/18 17:20 04/26/18 20:10 04/26/18 21:30 Temperature 98.3 F Pulse Rate 99 H 78 Respiratory Rate 14 16 15 Blood Pressure 120/58 L 145/85 H 131/62 Pulse Oximetry 100 99 97 04/26/18 22:11 04/26/18 23:10 04/27/18 00:00 Temperature 98.3 F Pulse Rate 77 Respiratory Rate 18 18 17 Blood Pressure 139/79 Pulse Oximetry 98 04/27/18 01:04 04/27/18 03:45 04/27/18 04:00 Temperature 98.3 F Pulse Rate 80 Respiratory Rate 18 17 17 Blood Pressure 129/70 Pulse Oximetry 97 04/27/18 05:38 04/27/18 08:00 04/27/18 11:01 Temperature 99.6 F 99.6 F 99.5 F Pulse Rate 87 91 H 100 H Respiratory Rate 17 18 18 Blood Pressure 101/56 L 108/58 L 119/58 L Pulse Oximetry 91 L 92 L 91 L Intake & Output 04/26/18 04/27/18 04/27/18 18:59 06:59 18:59 Intake Total 0 / 0 Balance 0 / 0 Weight 67.132 kg 67.1 kg Intake: IV 0 / 0 LR 1000 mL Inj 1,000 ML @ 30 0 / 0 mls/hr IV.SIG .Q24H [facility] Rx#: [id number] Other: Date of Last Bowel Movement 04/26/18 04/26/18 Weight On Admission 67.1 kg Narrative: GENERAL: Well-nourished, well-developed female in no acute distress. HEENT: PERRLA, EOMI. No scleral icterus or conjunctival pallor. CARDIOVASCULAR: Regular rate and rhythm. No obvious murmurs to auscultation. RESPIRATORY: Clear to auscultation. Breath sounds equal bilaterally. GASTROINTESTINAL: Abdomen soft, non-tender, nondistended. BS normal. MUSCULOSKELETAL: Extremities without clubbing, cyanosis, or edema. Right forearm w/ previous scarring, +obvious deformity, decreased ROM of hand/fingers due to pain complaints. Pulses intact. Extremity warm. NEUROLOGICAL: Awake, alert and oriented x4. No focal neurologic deficits. Moving both upper and lower extremities spontaneously. Results Procedures completed during hospitalization: None. Labs on day of discharge: Labs from last 24 hours 04/27/18 04/27/18 04/26/18 06:36 06:36 19:30 WBC 10.4 RBC 4.59 Hgb 13.4 Hct 41.1 MCV 89.6 MCH 29.1 MCHC 32.5 RDW 14.5 Plt Count 268 MPV 8.9 Neut % (Auto) 67.9 Lymph % (Auto) 20.8 [place] % (Auto) 8.4 H Eos % (Auto) 2.0 Baso % (Auto) 0.9 Neut # (Auto) 7.1 Lymph # (Auto) 2.2 [place] # (Auto) 0.9 Eos # (Auto) 0.2 Baso # (Auto) 0.1 WBC Differential . Differential Comment Auto diff final PT INR APTT Sodium 141 136 Potassium 3.8 D 6.0 H D Chloride 105 105 Carbon Dioxide 25.9 23.6 Anion Gap 10 7 BUN 14 13 Creatinine 1.57 H 1.03 H Estimated GFR 34 L 56 L Random Glucose 99 112 H Calcium 8.4 L 8.2 L Total Bilirubin 0.3 AST 13 L ALT 13 Alkaline Phosphatase 93 Total Protein 7.1 Albumin 3.4 04/26/18 04/26/18 04/26/18 19:30 19:30 00:30 WBC 11.1 H RBC 4.33 Hgb 13.5 Hct 37.9 MCV 87.5 MCH 31.2 MCHC 35.7 RDW 14.1 Plt Count 294 D MPV 8.9 Neut % (Auto) 58.6 Lymph % (Auto) 29.5 [place] % (Auto) 8.0 Eos % (Auto) 2.6 Baso % (Auto) 1.3 Neut # (Auto) 6.5 Lymph # (Auto) 3.3 [place] # (Auto) 0.9 Eos # (Auto) 0.3 Baso # (Auto) 0.1 WBC Differential . Differential Comment Auto diff final PT 10.7 INR 1.1 APTT 28.3 Sodium Potassium 3.6 Chloride Carbon Dioxide Anion Gap BUN Creatinine Estimated GFR Random Glucose Calcium Total Bilirubin AST ALT Alkaline Phosphatase Total Protein Albumin - Impressions ITS Impressions Forearm X-Ray 04/26/18 18:33 CONCLUSION: Mildly displaced fracture of the right radius and right radial intramedullary jennie. Discharge Plan - Discharge Disposition Patient Disposition: 01 Discharge Home - Discharge Condition Condition: Stable - Discharge Order Discharge Orders: Discharge Order (Routine); Ordered 04/27/18 Ordered By: Byron Covarrubias Orthopedic Clear for Discharge (Routine); Ordered 04/27/18 Ordered By: Tiburcio Ricks - Physicians Team Primary Care Provider: Codey Escalante Attending Provider: Jack Bazzi Other Providers: Eleazar,Snehaa ; Josias Jimenez MD ; Tiburcio Ricks MD ; Trisha Gallagher MD
--- NOTE | 2018-04-27 13:18 | ECG ---
Date Performed: 04/27/2018 Time Performed: 05:28:26 PTAGE: 52 years EKG: Sinus rhythm . Diffuse ST-T changes Abnormal ECG PREVIOUS TRACING : 02/18/2018 13.01 Since the previous tracing, no significant change noted DOCTOR: Laura Adams Interpretating Date/Time 04/27/2018 13:17:06
== END 2018-04-27 13:06 | disposition home or self-care (01) ==
LOC: NEDA 17:15 → NEPD 17:15 → N06 21:52
PROVIDERS: ADMIT Hospitalist; ATTEND Hospitalist